=== PATIENT | male | born 1950 | race Caucasian/White ===

== ENCOUNTER 2025-06-10 14:10 | Emergency (ER) | payer MEDICARE, OTHER, SELFPAY ==
[2025-06-10 14:14] VITALS: BP 93/60; PULSE 120; RESP 16; TEMP 36.6; O2SAT 94; BMI 20.4
--- NOTE | 2025-06-10 14:16 | ED.GENADULT ---
HPI - General Adult General Chief complaint: Urogenital-Male Stated complaint: Unable to Urinate Time Seen by Provider: 06/10/25 15:40 Source: patient Mode of arrival: ambulatory Limitations: no limitations History of Present Illness ED Provider: HPI narrative: 74-year-old male, presenting with what he reports as inability to urinate since yesterday, he did urinate small amount earlier today, he went to urgent Care was sent here for urinary retention workup. No fevers or chills has had no hematuria or dysuria, no flank pain. Related Data Allergies Allergy/AdvReac Type Severity Reaction Status Date / Time No Known Allergies Allergy Verified 06/10/25 14:19 Review of Systems Constitutional: Constitutional: Reports as per [facility] Social History Social History Advance Directives: Yes Advance Directives Information Provided: Yes Advance Directives on File: No Do you have a plan to hurt others: No Plan Physical Exam ED Vital Signs: Vital Signs - 24 hr 06/10/25 14:14 06/10/25 17:17 Temperature 97.9 F 98.3 F Pulse Rate 120 H 96 Respiratory Rate 16 16 Blood Pressure 93/60 100/60 Pulse Oximetry 94 95 Oxygen Delivery Method Room Air Room Air BMI result Body Mass Index 20.4 Const Other: Gen: ?Overall well-appearing patient HEENT: PERRLA, EOMI, MMM, Neck: Supple, no LAD CV: RRR, no obvious murmurs appreciated Resp: ?No wheezing rales rhonchi no stridor moving air well Abd: ?Bowel sounds are present, no tenderness no rebound no rigidity MSK: FROM, strength 5/5 all extremities Skin: Warm, dry, intact, Neuro: ?Alert and oriented x3, moving upper and lower extremities symmetrically, no obvious facial asymmetry noted Course Course Course Narrative: RME, this is a rapid medical exam performed by Clay Anderson please refer to primary provider for complete H&P- 74 year old male presents for evaluation of difficulty urinating for the last few days. He was able to urinate a small amount this moning. Plan for labs, bladder scan, urinalysis Medications Administered Discontinued Medications Generic Name Dose Route Start Last Admin Trade Name Freq PRN Reason Stop Dose Admin Sodium Chloride 1,000 mls @ 999 mls/hr 06/10/25 16:30 06/10/25 17:30 Ns IV 06/10/25 17:30 Infused .Q1H1M [facility] Infusion Procedures Ultrasound ED POC Ultrasound: Renal EMERGENCY ULTRASOUND REPORT?Point of Care Urinary Tract (Renal) Indication: Urinary retention Bladder:? 100 cc, enlarged prostate Right Kidney:? Bilateral simple cysts Left Kidney: Bilateral simple cysts Impression:? Simple cysts both kidneys, enlarged prostate no significant retention at this time Medical Decision Making Medical Decision Making [facility] Narrative: Patient is presenting with concerns for urinary retention, he states last time your urinated was yesterday, small amount urinated today, he is slightly hypotensive in triage but otherwise has had no fevers or chills, bedside ultrasound with the hydronephrosis, small amount of urine in the bladder, and a large prostate, we will give fluids, we will determine if he is able to urinate or he just dehydrated and that would explain his slight hypotension as well as some blood work that is suggestive of dehydration, his BUN is 23, we will re-evaluate and determine further management 18:30 received fluids, reassessed and able to urinate we will place a Segura catheter Differential Diagnosis Differential Diagnoses: The differential diagnosis associated with the presentation includes (Urinary retention, UTI, hemorrhagic cystitis, renal colic, pyelonephritis, dehydration) Admission/Observation Consideration of admission/observation: Escalation of care including admission/observation considered (To be determined if he has significant UTI, AYDEN, if urology needs to be involved) 2022 Emergency Medicine Coding Guide from [employer] on 06/10/2025 All calculations should be rechecked by clinician prior to use RESULT SUMMARY: 4 Estimated Level of Service Problems: Moderate (4) Risk: Moderate (4) Data: Extensive (5) NARRATIVE MDM: This patient's problem complexity is Moderate as patient: has a new undiagnosed problem with uncertain prognosis but that could be serious. This patient's risk is Moderate due to: overall presentation requiring evaluation for a potentially Moderate-risk process. This patient's data complexity is Extensive due to: -multiple tests ordered -independent interpretation of imaging or EKG INPUTS: Number and Complexity ?> 5 = 4: undiagnosed new problem, uncertain outcome (e) Risk level ?> 3 = Moderate Tests ordered ?> 3 = >= Tests results reviewed (excluding labs) ?> 1 = 1 Prior external notes reviewed ?> 0 = 0 Assessment requiring and independent historian ?> 0 = No Independent interpretation of tests ?> 1 = Yes Discussed management/test interpretation w/external professional ?> 0 = No Lab Data MDM Lab Attestation statement: I reviewed the patient's lab results. 06/10/25 14:43 06/10/25 14:43 Labs: Lab Results 06/10/25 06/10/25 Range/Units 14:43 19:18 WBC 12.0 H (4.8-10.8) X10*3/uL RBC 4.59 L (4.60-5.80) X10*6/uL Hgb 14.3 (14.0-18.0) g/dl Hct 41.2 L (42.0-52.0) % MCV 89.8 (80.0-98.0) fL MCH 31.2 (27.0-33.0) pg MCHC 34.7 (31.0-36.0) g/dl RDW 14.2 (11.0-16.0) % Plt Count 297 (160-400) X10*3/uL MPV 9.0 L (9.4-12.4) fL Immature Gran % (Auto) 1.2 H (0.0-0.4) % Neut % (Auto) 76.4 H (45-73) % Lymph % (Auto) 13.5 L (20-40) % Durham % (Auto) 7.1 (2-11) % Eos % (Auto) 1.1 (0-4) % Baso % (Auto) 0.7 (0-2) % Lymph # (Auto) 1.6 (1.2-4.9) X10*3/uL Durham # (Auto) 0.9 (0.1-1.2) X10*3/uL Eos # (Auto) 0.1 (0.0-0.4) X10*3/uL Baso # (Auto) 0.1 (0.0-0.2) X10*3/uL Abs Immat Gran (auto) 0.14 H (0.00-0.03) X10*3/uL Absolute Neuts (auto) 9.1 H (2.0-8.3) x10*3/uL Absolute Nucleated RBC 0.000 (0.0-0.012) X10*3/uL Nucleated RBC % (auto) 0.0 (0.0-0.2) /100WBC Sodium 138 (135-145) mmol/L Potassium 4.6 (3.3-5.1) mmol/L Chloride 104 (96-108) mmol/L Carbon Dioxide 25 (22-29) mmol/L Anion Gap 14 (12-20) BUN 23 H (9-16) mg/dL Creatinine 1.29 (0.5-1.4) mg/dL Estim Creat Clear Calc 43.2 Estimated GFR 54 Random Glucose 129 H (60-115) mg/dL Calcium 8.8 (8.4-10.2) mg/dL Urine Color Yellow Urine Appearance Clear Urine pH 5.5 (5.0-9.0) Ur Specific Elizabeth 1.020 (1.005-1.025) Urine Protein Negative (Neg-Trace) mg/dL Urine Glucose (UA) Negative (Negative) mg/dL Urine Ketones Trace (Negative) mg/dL Urine Blood Negative (Negative) Urine Nitrite Negative (Negative) Ur Leukocyte Esterase Trace H (Negative) Urine RBC 0-2 (0-2) /HPF Urine WBC 0-5 (0-5) /HPF Ur Squamous Epith Cells 0-2 (0-2) /HPF Urine Bacteria None Seen (None Seen) Hyaline Casts 6-10 (0-2) /LPF Discharge Plan Discharge Clinical Impression: Acute retention of urine, Hypertrophy of prostate Patient Disposition: Home, Self-Care Instructions: Urinary Retention in Men (ED), Segura Catheter Placement and Care (ED) Additional Instructions: Evaluated with urinary retention, ultrasound did reveal enlarged prostate and you already take medications for that, urinalysis renal functional all reassuring, please read the instructions on Segura catheter care, and see a PCP or urologist for assessment whether you need to have Segura catheter discontinued. Any issues, bleeding, clots come back to the ER for re-evaluation. Print Language: Albanian
[2025-06-10 14:47] LABS: MANUAL DIFF FLAG NO
[2025-06-10 14:50] LABS: Hematocrit 41.2 % (42.0-52.0); Hemoglobin 14.3 g/dl (14.0-18.0); Imm Gran Abs Auto 0.14 X10*3/uL (0.00-0.03); Imm Gran Pct Auto 1.2 % (0.0-0.4); Lymphocytes Absolute Auto 1.6 X10*3/uL (1.2-4.9); Mean Corpuscular HGB Conc 34.7 g/dl (31.0-36.0); Mean Corpuscular Hemoglobin 31.2 pg (27.0-33.0); Mean Corpuscular Volume 89.8 fL (80.0-98.0); NRBC Abs Auto 0.000 X10*3/uL (0.0-0.012); NRBC Pct Auto 0.0 /100WBC (0.0-0.2); Platelet Count 297 X10*3/uL (160-400); Red Blood Count 4.59 X10*6/uL (4.60-5.80); White Blood Count 12.0 X10*3/uL (4.8-10.8)
[2025-06-10 15:03] LABS: Anion Gap 14 (12-20); Blood Urea Nitrogen 23 mg/dL (9-16); Calcium 8.8 mg/dL (8.4-10.2); Carbon Dioxide 25 mmol/L (22-29); Chloride 104 mmol/L (96-108); Creatinine Clr Calc Pharmacy 43.2; Estimated Glomerular Filt Rate 54; Potassium 4.6 mmol/L (3.3-5.1); Sodium 138 mmol/L (135-145)
[2025-06-10 17:17] VITALS: BP 100/60; PULSE 96; RESP 16; TEMP 36.8; O2SAT 95
[2025-06-10 19:24] LABS: Appearance Urine Clear; Glucose Urine UA Negative (Negative); PH 5.5 (5.0-9.0); Specific Gravity - Urine 1.020 (1.005-1.025); UMIC TRIGGER UACC YES
--- NOTE | 2025-06-10 20:14 | PC.NURSE ---
coude leaking. ballon found to be inflated with 15-20mL. re inflated with 30mL. no evidence of further leaking. schultz care teaching discussed with patient and son. stated understanding. no burning/pain. catheter draining yellow urine. ambulates steadily without assist
[2025-06-10 20:17] VITALS: BP 107/62; PULSE 88; RESP 16; TEMP 36.6; O2SAT 96
== END 2025-06-10 20:20 | disposition home or self-care (01) ==
PROVIDERS: Physician Assistant; Emergency Provider Emergency Medicine; PCP Internal Medicine
DX: N40.1 Benign prostatic hyperplasia with lower urinary tract symptoms (principal); R33.8 Other retention of urine; Q61.02 Congenital multiple renal cysts
CPT/HCPCS: 36415; 51702; 51798; 76775; 80048; 81001; 85025; 96360; 99284

== ENCOUNTER 2025-06-22 09:16 | Outpatient (AMB) | payer MEDICARE, OTHER, SELFPAY ==
--- NOTE | 2025-06-22 09:29 | MHC.OFFVIS ---
Intake Visit Reasons: VT Intake Note: New patient presents today for initial visit for voiding trial Urology Medication:Finasteride Blood Thinner:None Antibiotic Allergies:None PVR:48ml Allergies No Known Allergies Allergy (Verified 06/22/25 09:30) HPI Comments Details: Theater is a pleasant male. He is a patient of Dr. Bernal. He is seen for the following urologic conditions - urinary retention - lower urinary tract symptoms History mostly from son Confusion was initially suspected to be due to a urinary tract infection. Bladder palpation indicated urinary retention. Seen in emergency department Bladder scan showed incomplete emptying with 132 mL volume. Tamsulosin dose increased to two tablets daily. Plan includes catheter removal and voiding trial. Cystoscopy and potential laser ablation discussed. Voiding trial performed today. Failed but states Has shy bladder. We will see in 6 weeks with cystoscopy. Urinary Symptoms Review - Urinary retention noted with hard bladder on palpation - Incomplete bladder emptying with 132 mL residual volume - Difficulty in providing urine sample due to retention Review of Systems Const Denies chills and Denies fever(s) Card Reports no additional complaints and Denies syncope Resp Denies cough GI Denies abdominal pain and Denies heartburn Reports as per HPI and Denies change in libido Neuro Denies syncope Psych Denies change in libido Endo Denies change in libido Physical Exam Const General: cooperative, healthy appearing, comfortable and no acute distress Orientation/consciousness: patient oriented x3 HEENT Face and sinus: Yes normal facial exam Mouth: moist mucous membranes Neck Neck: Yes normal visual inspection, Yes full ROM and Yes trachea midline Chest Chest palpation & inspection: normal inspection of the chest Resp Effort & Inspection: normal respiratory effort, able to speak in complete sentences and no respiratory distress GI Inspection: Yes normal to inspection Back/Spine/Pelvis Cervical Spine: normal cervical lordosis Thoracic/Lumbar Spine: thoracic and lumbar spine normal to inspection Skin General skin exam: no rashes or lesions noted Neuro General: patient oriented x3, gait normal, tone normal and moves all extremities Extrem General: Yes normal to inspection and Yes capillary refill normal Office Procedures Bladder/Catheter Procedure Details: Patient presents to office for voiding trial s/p retention episode. 120mls sterile water instilled through catheter, patient tolerated well. Removed 16 fr schultz catheter, patient tolerated removal well. Patient was not able to void. Provider to go in for office visit. Patient to call office by 2pm if unable to void and patient will schedule cystoscopy appt with Dr. Pablo at checkout. Patient is agreeable with plan at this time [id number] Bladder Procedure code (CPT) selection complete Assessment & Plan Assessment & Plan (1) BPH w urinary obs/LUTS: Code(s): N40.1 - Benign prostatic hyperplasia with lower urinary tract symptoms; N13.8 - Other obstructive and reflux uropathy Category: Medical (2) Urinary retention with incomplete bladder emptying: Code(s): R33.9 - Retention of urine, unspecified Category: Medical Plan Patient informed verbally consented to the use of an ambient scribe 1. Benign Prostatic Hyperplasia - Continue finasteride and increase tamsulosin to two tablets daily - Perform voiding trial post-catheter removal - Schedule cystoscopy to assess need for laser ablation 2. Early Onset Dementia - Monitor cognitive status and manage symptoms as needed Discussion Notes I discussed with the patient the management of benign prostatic hyperplasia, including the continuation of finasteride and increasing tamsulosin dosage. We plan to remove the catheter and conduct a voiding trial. If necessary, a cystoscopy will be performed to evaluate the need for laser ablation. I explained the procedure, its benefits, and the expected outcomes. Follow-up is scheduled in four to six weeks to reassess and plan further interventions if needed. Patient Instructions - Continue taking finasteride and increase tamsulosin to two tablets daily. - Attend follow-up appointment in four to six weeks for cystoscopy. - Monitor for any changes in urinary symptoms and report if they worsen. Orders: Orders AMB Bladder/Catheter Procedure Today R33.8 - Other retention of urine Medications: New tamsulosin 0.8 mg (2 x 0.4 mg) PO DAILY 180 caps 0RF micturition finding 90 days Coding Level of Care Code New Pt Level 4 (09489) Diagnoses BPH w urinary obs/LUTS N40.1; N13.8 Urinary retention with incomplete bladder emptying R33.9 CPT Codes Bladder/Catheter Procedure - CPT: 91690-Feecdonfix of Bladder ([id number])
== END 2025-06-22 10:08 | disposition home or self-care (01) ==
LOC: HO.HUSH 09:16
PROVIDERS: PCP Internal Medicine; Visit Provider Urology
DX: N40.1 Benign prostatic hyperplasia with lower urinary tract symptoms (principal); N13.8 Other obstructive and reflux uropathy; R33.9 Retention of urine, unspecified
CPT/HCPCS: 51700; 99204

== ENCOUNTER → 2025-06-22 09:16 | Outpatient (BNVA) | payer MEDICARE, OTHER, SELFPAY | PROVIDERS: PCP Internal Medicine; Visit Provider Urology | DX: R33.9 Retention of urine, unspecified (principal); N40.1 Benign prostatic hyperplasia with lower urinary tract symptoms; N13.8 Other obstructive and reflux uropathy | CPT/HCPCS: 51700; 99202 ==